=== PATIENT | female | born 1950 | race Caucasian/White ===

== ENCOUNTER 2019-03-28 08:29 | Observation (INO) ==
--- NOTE | 2019-03-25 14:50 | EKG Report ---
Test Performed on : 03/25/2019 2:46:11 PM Test Reason : PAT Blood Pressure : / mmHG Vent. Rate : 069 BPM Atrial Rate : 069 BPM P-R Int : 148 ms QRS Dur : 076 ms QT Int : 390 ms P-R-T Axes : 068 056 031 degrees QTc Int : 417 ms Normal sinus rhythm. Normal ECG When compared with ECG of 26-APR-2010 10:10, No significant change was found Confirmed by Julio Short MD ([id number]) on 03/26/2019 6:25:08 AM
[2019-03-25 15:01] LABS: URINE SOURCE VOIDED
[2019-03-25 15:07] LABS: BASO# 0.05 X1000 (0.0-0.2); BASO% 0.5 % (0.0-0.8); EOS# 0.15 X1000 (0.0-0.7); EOS% 1.6 % (0.0-10.0); HEMATOCRIT 36.3 % (37.0-47.0); HEMOGLOBIN 12.2 g/dL (12.0-16.0); IMM GRAN# 0.02 X1000 (0.0-0.04); IMM GRAN% 0.2 % (0.0-0.5); LYMPH# 2.37 X1000 (1.2-3.4); LYMPH% 25.8 % (20.5-51.1); MCH 32.2 PG (27-31); MCHC 33.6 g/dL (33-37); MCV 95.8 FL (81-99); MONO# 0.67 X1000 (0.11-0.59); MONO% 7.3 % (1.7-9.3); MPV 9.5 FL (7.4-10.4); NEUT# 5.91 X1000 (1.4-6.5); NEUT% 64.6 % (42.2-75.2); PLT 335 X1000 (130-400); RBC 3.79 XMIL (4.2-5.4); RDW 13.1 % (11.5-14.5); WBC 9.17 X1000 (4.8-10.8)
[2019-03-25 15:09] LABS: BILIRUBIN URINE NEGATIVE (NEGATIVE); BLOOD URINE NEGATIVE (NEGATIVE); COLOR YELLOW; GLUCOSE URINE NEGATIVE (NEGATIVE); KETONE URINE NEGATIVE (NEGATIVE); LEUKOCYTES URINE NEGATIVE (NEGATIVE); NITRITE URINE NEGATIVE (NEGATIVE); PROTEIN URINE NEGATIVE (NEGATIVE); SP GRAVITY URINE 1.014; TURBIDITY URINE CLEAR (CLEAR); UROBILINOGEN URINE NORMAL (NORMAL)
--- NOTE | 2019-03-25 15:09 | Diag Imaging Result Doc PS360 ---
EXAM: CHEST-2 VIEWS 03/25/2019 HISTORY: PAT TECHNIQUE: PA and lateral chest COMMENT: There is no evidence of acute cardiac or pulmonary disease. There are no previous studies available for comparison. The regional skeleton appears to be intact. IMPRESSION: No acute disease. Electronically signed by Hira Leroy 03/25/2019 3:07 PM
[2019-03-25 15:10] LABS: UR EPITHELIAL CELLS <10 /HPF (<10); URINE BACTERIA NEGATIVE /HPF; URINE RBC <10 /HPF (<10); URINE WBC <10 /HPF (<10)
[2019-03-28] MEDS ORDERED: KEFZOL 1 GM/D5W 1 GM/50 ML IVPB ONE (09:24)
[2019-03-28] MEDS ORDERED: LR 1,000 ML ONE (09:24)
[2019-03-28] MEDS ORDERED: PEPCID ONE (09:24)
[2019-03-28] MEDS ORDERED: FENTANYL ONE (09:40)
[2019-03-28] MEDS ORDERED: VERSED ONE (09:40)
[2019-03-28] MEDS ORDERED: DIPRIVAN 1% ONE (09:40)
[2019-03-28] MEDS ORDERED: MARCAINE 0.25% ONE (10:00)
[2019-03-28] MEDS ORDERED: SODIUM CHLORIDE 0.9% 10 ML ONE (10:01)
[2019-03-28] MEDS ORDERED: EXPAREL 1.3% ONE (10:01)
[2019-03-28 10:38] LABS: URINE SOURCE CATH
[2019-03-28 10:47] LABS: COLOR YELLOW; UR EPITHELIAL CELLS >10 /HPF (<10); URINE BACTERIA NEGATIVE /HPF; URINE RBC <10 /HPF (<10); URINE WBC <10 /HPF (<10)
[2019-03-28 10:48] LABS: BILIRUBIN URINE NEGATIVE (NEGATIVE); BLOOD URINE NEGATIVE (NEGATIVE); GLUCOSE URINE NEGATIVE (NEGATIVE); KETONE URINE NEGATIVE (NEGATIVE); LEUKOCYTES URINE NEGATIVE (NEGATIVE); NITRITE URINE NEGATIVE (NEGATIVE); PROTEIN URINE NEGATIVE (NEGATIVE); SP GRAVITY URINE < 1.005; TURBIDITY URINE CLEAR (CLEAR); UROBILINOGEN URINE NORMAL (NORMAL)
[2019-03-28] MEDS ORDERED: ZEMURON ONE (10:50)
[2019-03-28] MEDS ORDERED: DECADRON ONE (10:50)
[2019-03-28] MEDS ORDERED: XYLOCAINE-MPF 2% ONE (10:50)
[2019-03-28] MEDS ORDERED: ZOFRAN ONE (10:50)
[2019-03-28] MEDS ORDERED: LUBRIFRESH PM OPH OINTMENT ONE (10:50)
[2019-03-28] MEDS ORDERED: QUELICIN (DOSE) ONE (10:50)
[2019-03-28] MEDS ORDERED: D5 1/2 NS 1,000 ML ONE (11:28)
[2019-03-28] MEDS ORDERED: ZOFRAN IV PRN (12:30)
[2019-03-28] MEDS ORDERED: VITAMIN D PO SCH (13:00)
--- NOTE | 2019-03-28 13:18 | OPERATIVE NOTE ---
PROCEDURE DATE: 03/28/2019 PREOPERATIVE NOTE: Roxy Kinney PE IR why a date 03/28 PREOP: Incisional hernia. POSTOP: Incisional hernia x2. PROCEDURE: Repair open. DESCRIPTION OF PROCEDURE: The patient brought to the operating room. After satisfactory induction of IV and endotracheal anesthesia, athrombic TEDs and a Redman catheter were placed. Her abdomen was broadly prepped and draped in the appropriate manner for laparotomy. The old midline incision especially in the periumbilical region was re-incised with careful excision around the hernia sac itself. The fascial edges were demonstrated and exposed. On further exposure there was felt to be hernia proximal to the large simple hernia that was in the periumbilical region. For this reason, the fascia was incised further superiorly to connect the 2 hernias. There was no evidence of visceral involvement. The fascial ledges were freed up and subsequently closed with interrupted #1 Prolene. A #8 cm mesh was subsequently brought into the field. Subcutaneous tissue was excise back on the left and right sides exposing the rectus fascia. The mesh was subsequently tacked down with interrupted 0 Surgilon. On completion the defect was completely covered. There appeared to be no bleeding or expanding hematoma. The subcutaneous was subsequently closed with interrupted 3-0 Vicryl and the skin itself with stainless steel clips. Sterile dressing and abdominal binder were applied. She was awakened and extubated in the operating room and transferred to recovery. ESTIMATED BLOOD LOSS: 20-30 mL. cc: Von Cervantes MD
[2019-03-28] MEDS: D5 1/2 NS 1,000 ML IV SCH ×2 (15:45→22:43)
[2019-03-28 16:26] LABS: URINE SOURCE CLEAN CATCH
[2019-03-28 16:29] LABS: BILIRUBIN URINE NEGATIVE (NEGATIVE); BLOOD URINE NEGATIVE (NEGATIVE); COLOR STRAW; GLUCOSE URINE NEGATIVE (NEGATIVE); KETONE URINE NEGATIVE (NEGATIVE); LEUKOCYTES URINE NEGATIVE (NEGATIVE); NITRITE URINE NEGATIVE (NEGATIVE); PH URINE 7.5; PROTEIN URINE NEGATIVE (NEGATIVE); SP GRAVITY URINE 1.004; TURBIDITY URINE CLEAR (CLEAR); UR EPITHELIAL CELLS <10 /HPF (<10); URINE BACTERIA NEGATIVE /HPF; URINE RBC <10 /HPF (<10); URINE WBC <10 /HPF (<10); UROBILINOGEN URINE NORMAL (NORMAL)
[2019-03-28] MEDS: MORPHINE IV PRN ×2 (16:34→19:49)
[2019-03-28] MEDS: KEFZOL 1 GM/D5W 1 GM/50 ML IVPB IV SCH (18:33)
[2019-03-28] MEDS: TOPAMAX PO SCH (20:00)
[2019-03-28] MEDS: LEXAPRO PO SCH (20:00)
[2019-03-28] MEDS: PERIDEX MT SCH (20:00)
[2019-03-28] MEDS: PATIENT'S OWN MED PO SCH (20:04)
[2019-03-28] MEDS: PATIENT'S OWN MED MISC SCH (20:04)
[2019-03-28] MEDS: NORCO-10 PO PRN (22:42)
[2019-03-29] MEDS: KEFZOL 1 GM/D5W 1 GM/50 ML IVPB IV SCH ×3 (02:58→10:41)
[2019-03-29] MEDS: PREVACID SOLUTAB PO SCH ×2 (05:03→06:09)
[2019-03-29] MEDS: SYNTHROID PO SCH ×2 (05:04→06:09)
[2019-03-29] MEDS: MORPHINE IV PRN ×4 (05:04→22:50)
[2019-03-29 05:58] LABS: BASO# 0.02 X1000 (0.0-0.2); BASO% 0.2 % (0.0-0.8); EOS# 0.07 X1000 (0.0-0.7); EOS% 0.8 % (0.0-10.0); HEMATOCRIT 31.4 % (37.0-47.0); HEMOGLOBIN 10.2 g/dL (12.0-16.0); LYMPH# 2.21 X1000 (1.2-3.4); LYMPH% 26.4 % (20.5-51.1); MCH 31.8 PG (27-31); MCHC 32.5 g/dL (33-37); MCV 97.8 FL (81-99); MONO# 0.56 X1000 (0.11-0.59); MONO% 6.7 % (1.7-9.3); MPV 9.4 FL (7.4-10.4); NEUT# 5.51 X1000 (1.4-6.5); NEUT% 65.9 % (42.2-75.2); PLT 283 X1000 (130-400); RBC 3.21 XMIL (4.2-5.4); RDW 12.8 % (11.5-14.5); WBC 8.37 X1000 (4.8-10.8)
[2019-03-29 06:19] LABS: AGAP 7; BUN 6 mg/dL (8-22); CALCIUM 7.5 mg/dL (8.8-10.2); CHLORIDE 111 mmol/L (98-107); COSMO 280; CREATININE 0.7 mg/dL (0.5-0.9); ESTIMATED GFR > 60; GLUCOSE 112 mg/dL (70-104); POTASSIUM 2.8 mmol/L (3.5-5.1); SODIUM 141 mmol/L (136-145); TCO2 23 mmol/L (25-35)
[2019-03-29] MEDS: D5 1/2 NS 1,000 ML IV SCH (08:44)
[2019-03-29] MEDS: PERIDEX MT SCH ×2 (08:44→21:44)
[2019-03-29] MEDS: FLONASE NAS SCH (08:44)
[2019-03-29] MEDS: MOBIC PO SCH (08:45)
[2019-03-29] MEDS: ESTRACE PO SCH (08:45)
[2019-03-29] MEDS: KLOR-CON PO SCH (08:45)
[2019-03-29] MEDS: ZEBETA PO SCH (08:46)
[2019-03-29] MEDS: DYAZIDE PO SCH (08:46)
[2019-03-29] MEDS: TOPAMAX PO SCH ×2 (08:46→21:43)
[2019-03-29] MEDS: NORCO-10 PO PRN ×3 (08:47→23:22)
[2019-03-29] MEDS: PATIENT'S OWN MED PO SCH ×2 (08:49→21:56)
[2019-03-29] MEDS: PATIENT'S OWN MED MISC SCH ×2 (08:49→21:56)
[2019-03-29] MEDS: D5 1/2 NS + KCL 20 MEQ 1,000 ML IV SCH ×2 (11:40→22:00)
[2019-03-29] MEDS ORDERED: POTASSIUM CHLORIDE 10% LIQUID PO ONE ×2 (18:08→21:00)
[2019-03-29] MEDS ORDERED: RESTORIL PO SCH (21:00)
[2019-03-29] MEDS: LEXAPRO PO SCH (21:43)
[2019-03-30] MEDS: PREVACID SOLUTAB PO SCH (06:04)
[2019-03-30] MEDS: SYNTHROID PO SCH (06:04)
[2019-03-30 06:05] LABS: BASO# 0.04 X1000 (0.0-0.2); BASO% 0.5 % (0.0-0.8); EOS# 0.19 X1000 (0.0-0.7); EOS% 2.5 % (0.0-10.0); HEMATOCRIT 31.7 % (37.0-47.0); HEMOGLOBIN 10.2 g/dL (12.0-16.0); LYMPH# 1.98 X1000 (1.2-3.4); LYMPH% 25.9 % (20.5-51.1); MCH 32.1 PG (27-31); MCHC 32.2 g/dL (33-37); MCV 99.7 FL (81-99); MONO% 6.5 % (1.7-9.3); MPV 9.6 FL (7.4-10.4); NEUT# 4.93 X1000 (1.4-6.5); NEUT% 64.6 % (42.2-75.2); PLT 284 X1000 (130-400); RBC 3.18 XMIL (4.2-5.4); WBC 7.64 X1000 (4.8-10.8)
[2019-03-30 07:00] LABS: AGAP 8; CHLORIDE 109 mmol/L (98-107); POTASSIUM 3.9 mmol/L (3.5-5.1); SODIUM 140 mmol/L (136-145); TCO2 23 mmol/L (25-35)
[2019-03-30 07:01] LABS: BUN 3 mg/dL (8-22); CALCIUM 8.1 mg/dL (8.8-10.2); COSMO 276; CREATININE 0.7 mg/dL (0.5-0.9); ESTIMATED GFR > 60; GLUCOSE 97 mg/dL (70-104)
[2019-03-30 08:24] VITALS: BP 138/69
[2019-03-30] MEDS: FLONASE NAS SCH (10:28)
[2019-03-30] MEDS: ZEBETA PO SCH (10:29)
[2019-03-30] MEDS: TOPAMAX PO SCH (10:29)
[2019-03-30] MEDS: DYAZIDE PO SCH (10:30)
[2019-03-30] MEDS: NORCO-10 PO PRN (10:30)
[2019-03-30] MEDS: ESTRACE PO SCH (10:31)
[2019-03-30] MEDS: KLOR-CON PO SCH (10:31)
[2019-03-30] MEDS: MOBIC PO SCH (10:31)
[2019-03-30] MEDS: PATIENT'S OWN MED PO SCH (10:32)
[2019-03-30] MEDS: PATIENT'S OWN MED MISC SCH (10:32)
[2019-03-30] MEDS: PERIDEX MT SCH (10:32)
[2019-03-30] MEDS ORDERED: VITAMIN D PO SCH (13:00)
== END 2019-03-30 11:10 | disposition home or self-care (01) ==
LOC: DIRADM 08:29 → 4N 08:29 → OR 08:29 → OBSVTOIN 10:20
PROVIDERS: ADMIT Surgery; ATTEND Surgery